=== PATIENT | female | born 1955 ===

== ENCOUNTER → 2017-05-29 | Outpatient (CLI) | payer OTHER ==
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
== END ==
LOC: FCPNEURO 15:07
PROVIDERS: ATTEND Psychiatry & Neurology Neurology
DX: G43.109 Migraine with aura, not intractable, without status migrainosus (principal); G40.209 Localization-related (focal) (partial) symptomatic epilepsy and epileptic syndromes with complex partial seizures, not intractable, without status epilepticus